=== PATIENT | female | born 1985 | race Caucasian/White ===

== ENCOUNTER 2021-12-04 12:24 | Inpatient (IN) | payer BC ==
[~2021-12-04] VITALS: Ht 167.6 cm; Wt 82.6 kg
--- NOTE | 2022-01-08 06:50 | PR ---
[facility] [address] [place], [place] [address] Signed PP Progress Notes Datetime Report Generated by CPN: 01/08/2022 06:49 SUBJECTIVE: [id number] Pain: Within Normal Limits Nausea/Vomiting: Denies Flatus: Yes Bowel Movement: No Vital Signs: [id number] Vital Signs: Reviewed; Within Normal Limits Cardiovascular: Normal Respiratory: Normal Abdomen/Uterus: Normal Lochia: Normal Vulva/Perineum: Not Done Breasts: Not Done CVA Tenderness: Normal Extremities: Normal Incision: Normal Progress: Normal Exam Comments: Fundus firm U-2 nontender. Incision well healing IMPRESSION/PLAN/PROCEDURES: [id number] Impression: Normal Progression Plan: Continue Present Management Progress Notes: Pt seen and examined. Doing well. Ambulating, voiding, and tolerating full diet. Pain and lochia minimal. well. No fevers/chills or other concerns. Anticipate d/c home tomorrow. Signing Physician: Jemima Griggs DO Copies: ~ *Electronically Signed* 01/08/22 0649 JEMIMA GRIGGS DO PATIENT NAME: ZAWAUBREY HILL PROGRESS NOTE DATE OF : 89 PHYSICIAN: JEMIMA GRIGGS DO RPT #: [id number] REPORT IS CONFIDENTIAL AND NOT TO BE RELEASED WITHOUT AUTHORIZATION
--- NOTE | 2022-01-09 07:24 | PR ---
[facility] [address] [place], [place] [address] Signed PP Progress Notes Datetime Report Generated by CPN: 01/09/2022 07:24 SUBJECTIVE: [id number] Pain: Within Normal Limits Nausea/Vomiting: Denies Flatus: Yes Bowel Movement: No Vital Signs: [id number] Vital Signs: Reviewed; Within Normal Limits Cardiovascular: Normal Respiratory: Normal Abdomen/Uterus: Normal Lochia: Normal Vulva/Perineum: Not Done Breasts: Not Done CVA Tenderness: Normal Extremities: Normal Incision: Normal Progress: Normal Exam Comments: Fundus firm U-2 nontender. Incision healing well. IMPRESSION/PLAN/PROCEDURES: [id number] Impression: Normal Progression Plan: Discharge Progress Notes: Pt seen and examined. Doing well. Ambulating, voiding, and tolerating full diet. Pain and lochia minimal. well. No fevers/chills or other concerns. Jemma out tomorrow in the office. Signing Physician: Jemima Griggs DO Copies: ~ *Electronically Signed* 01/09/22 0724 JEMIMA GRIGGS DO PATIENT NAME: ZAWAUBREY HILL PROGRESS NOTE DATE OF : 89 PHYSICIAN: JEMIMA GRIGGS DO RPT #: [id number] REPORT IS CONFIDENTIAL AND NOT TO BE RELEASED WITHOUT AUTHORIZATION
--- NOTE | 2022-01-10 10:17 | OR ---
[facility] [address] [facility] [place], [place] [address] Signed DATE OF OPERATION: 01/07/2022 SURGEON: Jemima Griggs DO PREOPERATIVE DIAGNOSES: 1. Intrauterine at 39 weeks gestation. 2. Maternal request for primary . 3. In vitro fertilization . POSTOPERATIVE DIAGNOSES: 1. Intrauterine at 39 weeks gestation. 2. Maternal request for primary . 3. In vitro fertilization . PROCEDURE PERFORMED: Performed primary low-transverse delivery. ANESTHESIA: Spinal followed by TAP block following procedure. COMMUTATOR INSPECTOR: Cornelius Bernabe MD ESTIMATED BLOOD LOSS: 400 mL. FINDINGS: Delivery of viable male in the RADHA position via primary low-transverse delivery. Normal uterus, tubes, and ovaries. COMPLICATIONS: None. INDICATIONS: Ms. Quintana is a pleasant 36-year-old, G1, P0, with intrauterine at 39 weeks gestation, who presents for primary low transverse delivery by maternal request. complicated by IVF . The patient strongly request primary low-transverse delivery after careful discussion regarding risks, benefits, and alternatives. All questions were answered to the best of my ability to the patient's apparent satisfaction. Electronically Signed By: JEMIMA GRIGGS DO 01/10/22 1017 PATIENT NAME: AUBREY QUINTANA OPERATIVE REPORT DATE OF : 89 REPORT #: [id number] PHYSICIAN: JEMIMA GRIGGS DO PCP: WERNER EARLY MD REPORT IS CONFIDENTIAL AND NOT TO BE RELEASED WITHOUT AUTHORIZATION [facility] [address] [place], [place] [address] Signed TECHNIQUE: The patient was taken to the operating room where a time-out was performed to confirm correct patient and correct procedure. Spinal anesthesia was adequately established. The patient was prepped and draped in the supine position with a bump under the right hip. Chacon catheter was inserted. The patient received Ancef 2 g preoperatively and tranexamic acid 1 g preoperatively. Once spinal anesthetic was noted to be adequate, a Pfannenstiel skin incision was made approximately 2 cm above the pubic symphysis. Incision was carried down to the fascia. The fascia was nicked in the midline and fascial incision was extended bilaterally using curved Robb scissors. Fascia was grasped with Deepika's, elevated, and the underlying rectus muscle divided bluntly and sharply. The rectus muscle was divided in the midline bluntly and peritoneum was entered bluntly. Peritoneal incision was extended bilaterally using blunt dissection. An Doron self retractor was placed. The lower uterine segment was identified. Hysterotomy was then performed using a surgical scalpel. Clear amniotic fluid was noted and hysterotomy was extended bilaterally using blunt dissection. The surgeon's hand was placed in the uterine cavity and the head elevated into the maternal abdomen and delivered with the assistance of fundal pressure. Delivery of male in the RADHA position with no nuchal was performed without complication. The was vigorous and cried at delivery. The cord was doubly clamped and cut and the handed to the waiting pediatric team for further care. Cord blood was obtained for routine analysis. The placenta was expressed, intact with a centrally inserted three-vessel cord. The uterine cavity was cleared of any remaining products of conception or clot. Hysterotomy was then repaired in two layers using 0 Monocryl with the 1st being a running locked suture and the 2nd being a vertical imbrication in a nonlocked manner. Hemostasis was assured with judicious use of Bovie electrocautery. The pelvis was irrigated and again found to be hemostatic. Normal tubes and ovaries bilaterally were identified. The Doron self retractor was removed and the lower uterine segment again noted to be hemostatic. The peritoneum was reapproximated using 2-0 Vicryl in a running nonlocked manner. The rectus was examined, found to be hemostatic. This was then plicated in the midline using interrupted sutures of 0 Vicryl. Fascia was then reapproximated using 0 Vicryl in a running nonlocked manner. The skin was then reapproximated using surgical jason after ensuring hemostasis of the subcuticular space. Uterus was Crede'd for scant amount of blood. The patient remained in the operating room for postoperative TAP blocks. Dr. Bernabe was present and participated in all portions of procedure. Sponge, needle, and instrument count were correct x2 at the end of procedure. Jemima Griggs DO Electronically Signed By: JEMIMA GRIGGS DO 01/10/22 1017 PATIENT NAME: AUBREY QUINTANA OPERATIVE REPORT DATE OF : 89 REPORT #: [id number] PHYSICIAN: JEMIMA GRIGGS DO PCP: WERNER EARLY MD REPORT IS CONFIDENTIAL AND NOT TO BE RELEASED WITHOUT AUTHORIZATION [address] [address] Signed JDW/MODL /[id number] Copies: ~ Electronically Signed By: JEMIMA GRIGGS DO 01/10/22 1017 PATIENT NAME: AUBREY QUINTANA OPERATIVE REPORT DATE OF : 89 REPORT #: [id number] PHYSICIAN: JEMIMA GRIGGS DO PCP: WERNER EARLY MD REPORT IS CONFIDENTIAL AND NOT TO BE RELEASED WITHOUT AUTHORIZATION
== END 2022-01-09 10:25 | disposition home or self-care (01) | DRG 788 ==
LOC: FBC 01-07 03:53
PROVIDERS: ADMIT Obstetrics & Gynecology; ATTEND Obstetrics & Gynecology
PROC: 10D00Z1 Extraction of Products of Conception, Low, Open Approach (ICD-10-PCS; 2022-01-07)
PROC: 3E0T33Z Introduction of Anti-inflammatory into Peripheral Nerves and Plexi, Percutaneous Approach (ICD-10-PCS; 2022-01-07)
PROC: 3E0T3BZ Introduction of Anesthetic Agent into Peripheral Nerves and Plexi, Percutaneous Approach (ICD-10-PCS; principal; 2022-01-07 07:00)
DX: O80 Encounter for full-term uncomplicated delivery (principal); Z3A.39 39 weeks gestation of pregnancy; Z37.0 Single live birth
CPT/HCPCS: 01961; 36415; 76942; 85027; 86850; 86900; 86901; A9270; J0131; J0690; J1100; J1650; J1885; J2001; J2370; J2405; J2590; J2795; J7121

== ENCOUNTER 2022-02-27 05:35 | Day surgery (SDC) | payer BC ==
[~2022-02-27] VITALS: Ht 167.6 cm; Wt 70.0 kg
--- NOTE | ~2022-02-27 | OR ---
[facility] [address] [place], [place] [address] Draft DATE OF OPERATION: 02/27/2022 SURGEON: Jemima Griggs DO PREOPERATIVE DIAGNOSES: 1. Intrauterine mass. 2. state. POSTOPERATIVE DIAGNOSES: 1. Intrauterine mass. 2. state. PROCEDURES PERFORMED: Hysteroscopy, dilation and curettage with excision of intrauterine mass. RETAIL RESET MERCHANDISER: Cornelius Bernabe MD ANESTHESIA: General. ESTIMATED BLOOD LOSS: 25 mL. FLUID DEFICIT: 250 mL. SPECIMEN: Intrauterine mass. FINDINGS: Normal external genitalia with normal clitoris, urethral meatus, bilateral Tower's, and Bartholin glands. Normal vagina with good apical support. On hysteroscopy, large intrauterine mass with frond-like edges arising from stalk at 2 o'clock on the anterior portion of mid uterine wall filling the endometrial cavity and dilating the cervix. Mass was completely excised, restoring normal uterine architecture with normal bilateral tubal ostia noted. COMPLICATIONS: None. PATIENT NAME: AUBREY QUINTANA OPERATIVE REPORT DATE OF : 89 REPORT #: [id number] PHYSICIAN: JEMIMA GRIGGS DO PCP: WERNER EARLY MD REPORT IS CONFIDENTIAL AND NOT TO BE RELEASED WITHOUT AUTHORIZATION [facility] [address] [place] [id number] Draft INDICATIONS: Ms. Quintana is a pleasant 36-year-old G1, P1, approximately 7 weeks following primary low transverse delivery. was complicated by ART with IVF and by maternal request. The patient reported at her six-week visit that she had some continued vaginal bleeding. Urine test was negative and IUD was attempted to be inserted. However, there was felt that there was a blockage in the uterine cavity. Bedside ultrasound was performed that demonstrated an intrauterine mass. Official ultrasound was performed that confirmed this finding and MRI was suggested. MRI demonstrated complex cyst cystic solid structure inside the uterus concerning for retained products of conception versus gestational neoplastic disease. HCG was negative. Remainder of labs were normal. The patient was consented for hysteroscopy, D and C with excision of intrauterine mass. Risks, benefits, and alternatives were discussed in detail with the patient. The patient understands and wished to proceed with the procedure. TECHNIQUE: The patient was taken to the operating room. A time-out was performed to confirm correct patient and correct procedure. General anesthesia was adequately established. The patient was prepped and draped in the dorsal lithotomy position with feet in Yellofin stirrups. ICPs were on running and no preoperative antibiotics or heparin were indicated. A weighted speculum was placed in the vagina. The anterior lip of the cervix was grasped with an Allis clamp. The cervix was gently dilated using Hegar dilators and operative hysteroscope was placed in the cervical os and advanced under direct visualization into the uterine cavity. An intrauterine mass with frond-like edges arising from a stalk at 2 o'clock on the anterior portion of the mid uterine body was identified and MyoSure Reach was selected and used to excise uterine mass. The large bulky material was noted and decision was made to switch to sharp curettage. A large curette was selected and the uterus was gently curetted for large amount of additional material. The hysteroscope was reinserted and a small amount of remaining mass was excised without difficulty, restoring normal uterine anatomy with normal-appearing endometrium and bilateral tubal ostia. Bleeding was scant. The hysteroscope was removed. The Allis clamp removed and the patient taken to the PACU in good and stable condition. Sponge, needle, instrument count was correct x2 at the end of the procedure. Dr. Bernabe was present and participated in all portions of the procedure. Jemima Griggs DO PATIENT NAME: AUBREY QUINTANA OPERATIVE REPORT DATE OF : 89 REPORT #: [id number] PHYSICIAN: JEMIMA GRIGGS DO PCP: WERNER EARLY MD REPORT IS CONFIDENTIAL AND NOT TO BE RELEASED WITHOUT AUTHORIZATION [facility] [address] [facility] [place] [address] Draft JDW/MODL /[id number] Copies: ~ PATIENT NAME: AUBREY QUINTANA OPERATIVE REPORT DATE OF : 89 REPORT #: [id number] PHYSICIAN: JEMIMA GRIGGS DO PCP: WERNER EARLY MD REPORT IS CONFIDENTIAL AND NOT TO BE RELEASED WITHOUT AUTHORIZATION
[2022-02-27] MEDS ORDERED: ZYRTEC10 MG PO (06:13)
[2022-02-27] MEDS ORDERED: MULTI VITAMIN1 EACH PO (06:14)
--- NOTE | 2022-02-27 06:36 | NUR ---
PATIENT BACK FROM XRAY.
--- NOTE | 2022-02-27 08:22 | NUR ---
02/27/22 0822 Phylicia Alfaro 0814- PT ARRIVES TO PACU REACTIVE TO VERBAL STIMULI. PT WILL OPEN HER EYES, DOES NOT FOLLOW COMMANDS. RESP EVEN AND UNLABORED. OXYGEN SAT MID TO HIGH 90'S ON 6L VIA MASK. 0816- DR. QUINTANILLA AT THE BEDSIDE. 0818- OXYGEN TITRATED OFF.
--- NOTE | 2022-02-27 11:09 | NUR ---
PT TAKEN TO SURGERY, WAITING IN RM. SEEMS TO BE INFORMED, DR QUINTANILLA HAD JUST BEEN IN. PT IN PACU, ALL QUESTIONS ASKED ANSWERED. GAVE ENCOURAGEMENT
--- NOTE | 2022-02-28 15:55 | PATH ---
[facility] [address] [place], [place] [address] Signed SPECIMEN(S): A UTERINE MASS SPECIMEN SOURCE: A. UTERINE MASS CLINICAL HISTORY: Uterine mass. Hysteroscopy DC, excision of uterine mass. FINAL PATHOLOGIC DIAGNOSIS: Uterine mass, excision: - Fragments of partially necrotic placenta with hemorrhage/clotted blood, consistent with retained products of conception. - Weakly proliferative endometrium, endocervical mucosa, and myometrium with no histopathologic abnormality. COMMENT: Preliminary findings were discussed with Dr. Griggs on 02/28/2022. As part of [facility] Quality Improvement Program, this case was reviewed by another member of our pathology staff (ZAIN). NAL:ZAIN:cml:C2NR MICROSCOPIC EXAMINATION: Histologic sections of all submitted blocks are examined by light microscopy. These findings, together with the gross examination, support the pathologic diagnosis. GROSS DESCRIPTION: The specimen, labeled "EZ, A," and designated on the requisition "uterine mass," is received in formalin and consists of a portion of pink to red brown soft tissue (5.0 x 3.8 x 1.3 cm) with a 1.7 x 0.6 cm smooth membranous surface. Also received are multiple fragments of red-brown to pink-sorenson soft tissue (5.0 x 3.4 x 2.0 cm in aggregate). The entire largest fragment of soft tissue is sectioned to reveal a pink-sorenson to red brown cut surface with hemorrhage. Senior Online Marketing Manager sections are submitted as follows: (A1) Portion of largest tissue fragment (A2) tissue fragments (A3-A14) remaining intact portion of tissue (trisected tissue) (A 15-A18) separate tissue fragments AC (under the direct supervision of a pathologist) The Gross Description was prepared using a voice recognition system. The report PATIENT NAME: AUBREY WILCOX PATHOLOGY DATE OF : 89 REPORT #: [id number] PHYSICIAN: [facility] PATH[facility] PCP: WERNER EARLY MD REPORT IS CONFIDENTIAL AND NOT TO BE RELEASED WITHOUT AUTHORIZATION [facility] [address] [place], [place] [address] Signed was reviewed for accuracy; however, sound-alike word errors, addition and/or deletions may occur. If there is any question about this report, please contact Client Services. PERFORMING LABORATORY: The technical component was performed by [facility] [address] (CLIA# [id number]). Professional interpretation was performed by [facility], [address] [address] (CLIA# [id number]). Diagnostician: Anahi Parker MD Pathologist Electronically Signed 02/28/2022 Copies: ~ PATIENT NAME: AUBREY WILCOX PATHOLOGY DATE OF : 89 REPORT #: [id number] PHYSICIAN: [facility] PATHOLOGY PCP: WERNER EARLY MD REPORT IS CONFIDENTIAL AND NOT TO BE RELEASED WITHOUT AUTHORIZATION
== END 2022-02-27 09:14 | disposition home or self-care (01) ==
LOC: DS 05:35 → OPS 05:35 → DS 13:00 → OPS 13:00
PROVIDERS: ATTEND Obstetrics & Gynecology
PROC: 0UDB8ZX Extraction of Endometrium, Via Natural or Artificial Opening Endoscopic, Diagnostic (ICD-10-PCS; principal; 2022-02-27 06:45)
DX: O72.2 Delayed and secondary postpartum hemorrhage (principal); J45.909 Unspecified asthma, uncomplicated; Z88.2 Allergy status to sulfonamides
CPT/HCPCS: 00952; 36415; 71046; 80053; 84702; 85027; 86850; 86900; 86901; J1100; J1885; J2405; J2704; J3010; J7121